=== PATIENT | male | born 1955 | race Caucasian/White ===

== ENCOUNTER 2022-12-22 10:58 | Outpatient (CLI) | payer OTHER ==
[2023-01-01] MEDS ORDERED: LOSARTAN POTASS25 MG PO (10:10)
== END 2022-12-22 12:27 | disposition home or self-care (01) ==
LOC: MRI 10:58
PROVIDERS: ATTEND Orthopaedic Surgery
DX: M25.552 Pain in left hip (principal); D49.2 Neoplasm of unspecified behavior of bone, soft tissue, and skin

== ENCOUNTER 2023-01-01 09:03 | Outpatient (CLI) | payer OTHER ==
[2023-01-01] MEDS ORDERED: LOSARTAN POTASS25 MG (10:10)
[2023-01-01] MEDS ORDERED: ESTAZOLAM1 MG PO (12:14)
== END 2023-01-01 09:04 | disposition home or self-care (01) ==
LOC: LAB 09:03
PROVIDERS: ATTEND Orthopaedic Surgery
DX: D64.89 Other specified anemias (principal); E88.89 Other specified metabolic disorders; D68.8 Other specified coagulation defects; N39.0 Urinary tract infection, site not specified; A49.02 Methicillin resistant Staphylococcus aureus infection, unspecified site; E11.9 Type 2 diabetes mellitus without complications; I49.9 Cardiac arrhythmia, unspecified; I10 Essential (primary) hypertension; Z76.89 Persons encountering health services in other specified circumstances; E55.9 Vitamin D deficiency, unspecified; M85.9 Disorder of bone density and structure, unspecified; E56.1 Deficiency of vitamin K; E21.3 Hyperparathyroidism, unspecified; M06.4 Inflammatory polyarthropathy

== ENCOUNTER 2023-01-04 07:12 | Outpatient (CLI) | payer OTHER ==
[~2023-01-04 07:12] MED LIST: ESTAZOLAM1 MG PO; LOSARTAN POTASS25 MG PO
[2023-01-04] MEDS ORDERED: PROSCAR5 MG PO (13:54)
[2023-01-04] MEDS ORDERED: TAMS0.4C PO (13:54)
[2023-01-04] MEDS ORDERED: TRAZODONE HCL150 MG PO (13:55)
== END 2023-01-04 07:14 | disposition home or self-care (01) ==
LOC: NUCLEAR 07:12
PROVIDERS: ATTEND Orthopaedic Surgery
DX: D16.22 Benign neoplasm of long bones of left lower limb (principal)
CPT/HCPCS: 78315; A9503

== ENCOUNTER 2023-01-04 12:45 | Inpatient (IN) | payer OTHER ==
[2023-01-04] MEDS ORDERED: TAMS0.4C PO (13:54)
[2023-01-04] MEDS ORDERED: PROSCAR5 MG PO (13:54)
[2023-01-04] MEDS ORDERED: TRAZODONE HCL150 MG PO (13:55)
== END 2023-01-29 22:34 | DRG 478 ==
LOC: ADM 12:45 → CIR.AMB 01-08 07:00 → SURH 01-22 07:00 → O/R 01-22 07:55 → SURG 01-22 07:55 → PRE-ADM 01-22 12:45 → EDSTATUS 01-22 12:45 → SURH 01-22 12:45 → SURG 01-22 15:47 → SURH 01-28 12:21
PROVIDERS: ADMIT Orthopaedic Surgery; ATTEND Orthopaedic Surgery
PROC: 0QH704Z Insertion of Internal Fixation Device into Left Upper Femur, Open Approach (ICD-10-PCS; 2023-01-22)
PROC: 0QB70ZX Excision of Left Upper Femur, Open Approach, Diagnostic (ICD-10-PCS; principal; 2023-01-22 07:00)
PROC: 0T7B8DZ Dilation of Bladder with Intraluminal Device, Via Natural or Artificial Opening Endoscopic (ICD-10-PCS; 2023-01-23)
DX: D16.22 Benign neoplasm of long bones of left lower limb (principal); D62 Acute posthemorrhagic anemia; R33.8 Other retention of urine; Z53.1 Procedure and treatment not carried out because of patient's decision for reasons of belief and group pressure; I10 Essential (primary) hypertension; Z86.16 Personal history of COVID-19

== ENCOUNTER → 2023-01-12 08:42 | Outpatient (CLI) | payer OTHER ==
[~2023-01-12 08:42] MED LIST changes: +PROSCAR5 MG PO; +TAMS0.4C PO; +TRAZODONE HCL150 MG PO
== END | disposition home or self-care (01) ==
LOC: LAB 08:42
PROVIDERS: ATTEND Orthopaedic Surgery
DX: Z03.818 Encounter for observation for suspected exposure to other biological agents ruled out (principal)

== ENCOUNTER → 2023-01-18 | Outpatient (CLI) | payer OTHER | END | disposition home or self-care (01) | LOC: LAB 12:16 | PROVIDERS: ATTEND Orthopaedic Surgery | DX: Z03.818 Encounter for observation for suspected exposure to other biological agents ruled out (principal) ==

== ENCOUNTER 2023-05-01 10:42 | Outpatient (CLI) | payer OTHER | END 2023-05-01 10:45 | disposition home or self-care (01) | LOC: RAD 10:42 | PROVIDERS: ATTEND Orthopaedic Surgery | DX: D16.22 Benign neoplasm of long bones of left lower limb (principal) ==

== ENCOUNTER 2023-06-11 07:44 | Outpatient (CLI) | payer OTHER | END 2023-06-11 07:51 | disposition home or self-care (01) | LOC: RAD 07:44 | PROVIDERS: ATTEND Orthopaedic Surgery | DX: D16.22 Benign neoplasm of long bones of left lower limb (principal) ==